=== PATIENT | female | born 2000 | race Caucasian/White ===

== ENCOUNTER 2020-12-02 22:18 | Emergency (ER) | payer OTHER, MEDICAID ==
[~2020-12-02] VITALS: Ht 157.5 cm; Wt 89.8 kg
[2020-12-02] MEDS ORDERED: MUPIROCIN15 GM TOP (23:51)
[2020-12-02] MEDS ORDERED: DOXYCYCLINE 10100 MG PO (23:51)
[2020-12-02 23:59] VITALS: BP 123/64
== END 2020-12-02 23:59 | disposition home or self-care (01) ==
LOC: M.ERS 22:18
DX: U07.1 COVID-19 (principal); L08.9 Local infection of the skin and subcutaneous tissue, unspecified

== ENCOUNTER 2020-12-03 12:14 | Emergency (ER) | payer OTHER, MEDICAID ==
[~2020-12-03] VITALS: Ht 157.5 cm; Wt 89.8 kg
[~2020-12-03 12:14] MED LIST: DOXYCYCLINE 10100 MG PO; MUPIROCIN15 GM TOP
[2020-12-03 13:12] VITALS: BP 133/85
== END 2020-12-03 13:13 | disposition home or self-care (01) ==
LOC: M.ERS 12:14
DX: U07.1 COVID-19 (principal); Z98.890 Other specified postprocedural states